=== PATIENT | male | born 1975 | race Caucasian/White ===

== ENCOUNTER 2016-12-07 11:26 | Emergency (ER) | payer MEDICARE, MEDICAID ==
[2016-12-07 12:45] LABS: Hematocrit 44 % (42-52); Hemoglobin 14.6 g/dl (14.0-18.0); Mean Corpuscular HGB Conc 34 g/dl (31-36); Mean Corpuscular Hemoglobin 30 pg (27-31); Mean Corpuscular Volume 88 fL (80-94); Mean Platelet Volume 7 um3 (7.4-10.4); Red Blood Count 4.95 10^6/ul (4.0-5.4); Red Cell Distribution Width 14 % (10.5-15); White Blood Count 9.5 10^3/ul (3.5-10.8)
[2016-12-07 13:07] LABS: Albumin 4.1 g/dL (3.2-5.2); BUN/Creatinine Ratio 9.5 (8-20); Calcium 9.4 mg/dL (8.6-10.3); EGFR African American 101.1 (>60); EGFR Non-African American 78.6 (>60); Globulin 3.3 g/dL (2-4); Potassium 4.1 mmol/L (3.5-5.0); Total Bilirubin 0.3 mg/dL (0.2-1.0); Total Protein 7.4 g/dL (6.4-8.9)
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
[2016-12-07 13:56] VITALS: BP 117/80
== END 2016-12-07 13:52 | disposition home or self-care (01) ==
LOC: ED 11:26
DX: Z04.9 Encounter for examination and observation for unspecified reason (principal); F17.210 Nicotine dependence, cigarettes, uncomplicated; Z89.432 Acquired absence of left foot
CPT/HCPCS: 36415; 80053; 85025; 93005; 99282

== ENCOUNTER 2017-09-29 11:03 | Emergency (ER) | payer MEDICARE, MEDICAID ==
[2017-09-29 13:23] VITALS: BP 114/67
--- NOTE | 2017-09-29 14:57 | UC ---
UC Dental HPI - History of Current Complaint Chief Complaint: UCDentalProblem Stated Complaint: DENTAL PAIN Time Seen by Provider: 09/29/17 14:35 Hx Obtained From: Patient Onset/Duration: Gradual Onset, Lasting Days Severity: Moderate Aggravating Factor(s): Chewing Alleviating Factor(s): Nothing - Allergies/Home Medications Allergies/Adverse Reactions: Allergies Allergy/AdvReac Type Severity Reaction Status Date / Time Latex Allergy Rash Verified 09/29/17 11:19 Prochlorperazine AdvReac Intermediate Agitation Verified 09/29/17 11:19 [From Compazine] Home Medications: Home Medications Ibuprofen [Ibuprofen 200] 800 mg PO Q8HR PRN 09/29/17 [History Confirmed ] PMH/Surg Hx/FS Hx/Imm Hx Previously Healthy: Yes - Surgical History Surgical History: Yes Surgery Procedure, Year, and Place: [facility], twice each , all at [facility] [place] - Family History Known Family History: Positive: Cardiac Disease - [place] - Social History Occupation: Employed Full-time Lives: Alone Alcohol Use: Rare Substance Use Type: None Smoking Status (MU): Heavy Every Day Tobacco Smoker Amount Used/How Often: 1PPD - Immunization History Most Recent Influenza Vaccination: unknown Review of Systems Constitutional: Negative Skin: Negative Eyes: Negative ENT: Dental Pain Respiratory: Negative Cardiovascular: Negative Gastrointestinal: Negative Genitourinary: Negative Motor: Negative Neurovascular: Negative Musculoskeletal: Negative Neurological: Negative Psychological: Negative Is Patient Immunocompromised?: No All Other Systems Reviewed And Are Negative: Yes Physical Exam Triage Information Reviewed: Yes Appearance: Well-Appearing, Pain Distress Vital Signs: Initial Vital Signs Temp 97.8 F 09/29/17 11:14 Pulse 97 09/29/17 11:14 Resp 14 09/29/17 11:14 BP 138/91 09/29/17 11:14 Pulse Ox 98 09/29/17 11:14 Vital Signs Reviewed: Yes Eye Exam: Normal ENT Exam: Normal ENT: Positive: Dental tenderness - dental tenderness of right uppper second molar, with an area of induration visualized. dental caries noted with tooth eroided to the gumline. Dental Exam: Normal Neck exam: Normal Neck: Positive: 1 Respiratory Exam: Normal Cardiovascular Exam: Normal Skin Exam: Normal Dental Complaint Course/Dx - Course Course Of Treatment: Patient presents with dental pain. On exam there is evidence of dental caries, and the beginning of dental abscess. He has appointment scheduled with Wally Avilez. He was given RX for penvk, and tyelnol and codeine. And discharged home in stable condition. - Differential Dx/Diagnosis Differential Diagnosis/Dx: Dental Abscess, Dental Caries Provider Diagnoses: dental abscess. dental pain Discharge - Discharge Plan Condition: Stable Disposition: HOME Prescriptions: Acetaminop/Codeine 30 MG TAB* [Tylenol/Codeine 30 MG TAB*] 1 tab PO Q6H PRN #14 tab MDD 4 PRN Reason: dental pain Penicillin VK TAB* [Penicillin VK 250 mg Tab*] 500 mg PO QID #40 tab Patient Education Materials: Dental Abscess (ED), Toothache (ED) Referrals: Johnson Henson DO [Primary Care Provider] -
== END 2017-09-29 14:52 | disposition home or self-care (01) ==
LOC: UCEAST 11:03
DX: K04.7 Periapical abscess without sinus (principal); K08.89 Other specified disorders of teeth and supporting structures; F17.290 Nicotine dependence, other tobacco product, uncomplicated; Z88.8 Allergy status to other drugs, medicaments and biological substances; Z91.040 Latex allergy status
CPT/HCPCS: 99212; G0463

== ENCOUNTER 2018-03-01 21:44 | Observation (INO) | payer MEDICAID, MEDICARE, OTHER ==
[2018-03-01] MEDS ORDERED: Diazepam INJ (NF) 5 MG/ML 10 ML VIAL (50 MG TOTAL) IV ONE (22:45)
[2018-03-01] MEDS ORDERED: Metoclopramide IV* 5 MG/ML 2 ML VIAL IV ONE (23:09)
[2018-03-01] MEDS ORDERED: NS 0.9% 1000 ML* 1,000 ML IV ONE (23:17)
[2018-03-01] MEDS ORDERED: Pantoprazole IV* 40 MG IV ONE (23:18)
[2018-03-01] MEDS ORDERED: Diazepam SYRINGE* 5 MG/ML 2 ML SYRINGE (10 MG total) IV ONE (23:18)
[2018-03-01 23:25] LABS: Hematocrit 45 % (42-52); Hemoglobin 15.4 g/dl (14.0-18.0); Mean Corpuscular HGB Conc 34 g/dl (31-36); Mean Corpuscular Hemoglobin 29 pg (27-31); Mean Corpuscular Volume 85 fL (80-94); Mean Platelet Volume 7.7 um3 (7.4-10.4); Platelet Count 303 10^3/ul (150-450); Red Blood Count 5.28 10^6/ul (4.0-5.4); Red Cell Distribution Width 13 % (10.5-15); White Blood Count 19.9 10^3/ul (3.5-10.8)
[2018-03-01 23:40] LABS: INR 1.1 (0.77-1.02)
[2018-03-01 23:44] LABS: EGFR Non-African American 53.5 (>60)
[2018-03-01 23:50] LABS: ABS Basophils 0 10^3/ul (0-0.2); ABS Eosinophils 0 10^3/ul (0-0.6); ABS Lymphocytes 1.1 10^3/ul (1.0-4.8); ABS Monocytes 1.8 10^3/ul (0-0.8); ABS Neutrophils 16.7 10^3/ul (1.5-7.7)
[2018-03-02] MEDS ORDERED: NS 0.9% 1000 ML* 1,000 ML IV ONE (00:50)
[2018-03-02 01:23] LABS: ABS Nucleated RBC 0 10^3/ul; Eosinophil % 0 % (0-6); Lymphocyte % 5.8 % (25-47); Nucleated Red Blood Cells % 0.1
[2018-03-02] MEDS ORDERED: Iodixanol* (CONTRAST) 320 MG/ML 100 ML SDV IV ONE (01:40)
[2018-03-02] MEDS ORDERED: Potassium Chlor TAB* 20 MEQ TAB.ER PO ONE (02:17)
[2018-03-02] MEDS ORDERED: KCL 10 MEQ/50 ML IVPREMIX* 10 MEQ/50 ML BAG IV ONE (02:17)
[2018-03-02 03:03] LABS: Urine Appearance Clear; Urine Blood Negative (Negative); Urine Color Yellow; Urine Ketones 1+ (Negative); Urine Protein 2+(100 mg/dL) (Negative); Urine Urobilinogen Negative (Negative)
[2018-03-02] MEDS ORDERED: PROCHLORPERAZINE INJ 5 MG/ML 2 ML VIAL IV ONE (03:08)
[2018-03-02] MEDS ORDERED: Diazepam SYRINGE* 5 MG/ML 2 ML SYRINGE (10 MG total) IV ONE (03:09)
[2018-03-02] MEDS ORDERED: Buprenorphine/Naloxone 8-2 MG SL TAB* 1 TAB PO PRN (03:33)
[2018-03-02] MEDS ORDERED: Thiamine IV* 100 MG/ML 2 ML VIAL IM ONE (03:36)
[2018-03-02] MEDS ORDERED: Acetaminophen TAB* 325 MG PO PRN (03:36)
[2018-03-02] MEDS ORDERED: Buprenorphine/Naloxone 8-2 MG SL TAB* 1 TAB PO ONE ×3 (03:36→11:20)
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
--- NOTE | 2018-03-02 03:43 | ED ---
Adriana Quezada Rebecca, scribed for Tom Mckenzie MD on 03/01/18 at 2319 . Complex/Multi-Sys Presentation - HPI Summary HPI Summary: Pt is a 42 y/o M BIB [employer] who presents to ED c/o abdominal pain with N/V since this morning. Abdominal discomfort is currently severe, ranked 10/10. Pt reports hematemesis. Believes his symptoms are due to EtOH and heroin withdrawal. He uses both daily, last used 4 mg heroin (sniffed) and EtOH yesterday. - History Of Current Complaint Chief Complaint: EDGeneral Time Seen by Provider: 03/01/18 23:05 Hx Obtained From: Patient Onset/Duration: Still Present Severity Currently: Severe - 07/17 Location: Pain At: - Abdomen Aggravating Factor(s): EtOH and heroin withdrawal Alleviating Factor(s): nothing Associated Signs And Symptoms: Positive: Nausea, Vomiting, Abdominal Pain - Allergies/Home Medications Allergies/Adverse Reactions: Allergies Allergy/AdvReac Type Severity Reaction Status Date / Time latex Allergy Rash Verified 03/01/18 23:35 prochlorperazine AdvReac Intermediate Agitation Verified 03/01/18 23:35 PMH/Surg Hx/FS Hx/Imm Hx Cardiovascular History: Reports: Hx Hypertension Denies: Hx Pacemaker/ICD Musculoskeletal History: Reports: Hx Back Problems, Other Musculoskeletal History - Chronic Bilateral Hip Pain; Amputated left lower leg Sensory History: Reports: Hx Contacts or Glasses - did not wear them for test Denies: Hx Hearing Aid Opthamlomology History: Reports: Hx Contacts or Glasses - did not wear them for test Neurological History: Reports: Hx Migraine Psychiatric History: Denies: Hx Eating Disorder, Hx Panic Disorder, Hx of Violent Episodes Against Others - Surgical History Surgery Procedure, Year, and Place: [facility]07[facility] B[facility] inguinal hernia repairs, twice each , all at [facility] [place] - Immunization History Date of Tetanus Vaccine: unk Date of Influenza Vaccine: unk Infectious Disease History: No Infectious Disease History: Denies: Traveled Outside the US in Last 30 Days - Family History Known Family History: Positive: Cardiac Disease - [place] - Social History Alcohol Use: Daily Hx Substance Use: Yes Substance Use Type: Reports: Heroin Substance Use Comment - Amount & Last Used: 2-4 grams Hx Tobacco Use: Yes Smoking Status (MU): Heavy Every Day Tobacco Smoker Amount Used/How Often: 1PPD Review of Systems Negative: Fever Positive: Abdominal Pain, Vomiting, Nausea, Other - Hematemesis All Other Systems Reviewed And Are Negative: Yes Physical Exam - Summary Physical Exam Summary: VITAL SIGNS: Reviewed. GENERAL: ~Patient is a well-developed and nourished male who is lying comfortable in the stretcher. Patient is not in any acute respiratory distress. HEAD AND FACE: No signs of trauma. No ecchymosis, hematomas or skull depressions. No sinus tenderness. EYES: PERRLA, EOMI x 2, No injected conjunctiva, no nystagmus. EARS: Hearing grossly intact. Ear canals and tympanic membranes are within normal limits. MOUTH: Oropharynx within normal limits. NECK: Supple, trachea is midline, no adenopathy, no JVD, no carotid bruit, no c- spine tenderness, neck with full ROM. CHEST: Symmetric, no tenderness at palpation LUNGS: Clear to auscultation bilaterally. No wheezing or crackles. CVS: Regular rate and rhythm, S1 and S2 present, no murmurs or gallops appreciated. ABDOMEN: Patient is actively vomiting. Soft, non-tender. No signs of distention. No rebound no guarding, and no masses palpated. Bowel sounds are normal. EXTREMITIES: FROM in all major joints, no edema, no cyanosis or clubbing. NEURO: Alert and oriented x 3. No acute neurological deficits. Speech is normal and follows commands. SKIN: Diaphoretic Triage Information Reviewed: Yes Vital Signs On Initial Exam: Initial Vitals Temp Pulse Resp BP Pulse Ox 97.1 F 56 16 174/61 97 03/01/18 21:45 03/01/18 21:45 03/01/18 21:45 03/01/18 21:45 03/01/18 21:45 Vital Signs Reviewed: Yes Diagnostics - Vital Signs Vital Signs Temp Pulse Resp BP Pulse Ox 03/01/18 21:45 97.1 F 56 16 174/61 97 - Laboratory Result Diagrams: 03/01/18 23:14 03/01/18 23:14 Lab Statement: Any lab studies that have been ordered have been reviewed, and results considered in the medical decision making process. - CT CT Abd/Pel CT Interpretation: No Acute Changes - No acute findings. ED physician reviewed this report. Pending official report. CT Interpretation Completed By: Radiologist - EKG 2316 Cardiac Rate: Bradycardia - 54 bpm EKG Rhythm: Sinus Bradycardia EKG Interpretation: Normal axis. Normal interval. No ischemic changes. Re-Evaluation - Re-Evaluation First Eval Re-Evaluation Time: 03:12 Comment: Symptoms continue. Discuss results. Complex Multi-Symp Course/Dx Assessment/Plan: Pt is a 42 y/o M BIB [employer] who presents to ED c/o severe abdominal pain with N/V since this morning. Pt reports hematemesis. Believes his symptoms are due to EtOH and heroin withdrawal. He uses both daily, last used 4 mg heroin (sniffed) and EtOH yesterday. Blood work, UA, and toxicology were done, including a WBC of 19.9, INR of 1.1, lactic acid of 2.5, CRP of 8.27. CT Abd/Pel reveal no acute results. EKG has no ischemic changes. IN the ED course, pt received valium, reglan, fluids, protonix, compazine, and potassium chloride. Discussed care of pt with Dr. Montana who accepts pt for admission. Pt will be admitted with Dx of acute opirate withdrawal. Allergies noted. - Diagnoses Provider Diagnoses: Opiate withdrawal - Physician Notifications Discussed Care Of Patient With: Alex Montana Time Discussed With Above Provider: 03:10 Instructed by Provider To: Other - Accepts pt for admission. Discharge - Sign-Out/Discharge Documenting (check all that apply): Discharge/Admit/Transfer - Admit - Discharge Plan Condition: Fair Disposition: ADMITTED TO [facility] Referrals: No Primary Care Phys,NOPCP [Primary Care Provider] - The documentation as recorded by the Adriana najera Rebecca accurately reflects the service I personally performed and the decisions made by me, Tom Mckenzie MD.
[2018-03-02] MEDS ORDERED: Buprenorphine/Naloxone 8-2 MG SL TAB* 1 TAB PO SCH ×4 (04:00→21:00)
[2018-03-02] MEDS: LORazepam INJ* 2 MG/ML 1 ML VIAL IV PUSH SCH ×4 (05:37→20:43)
[2018-03-02] MEDS ORDERED: Ondansetron INJ* 2 MG/ML VIAL IV PRN (07:50)
--- NOTE | 2018-03-02 08:04 | PN ---
Subjective Date of Service: 03/02/18 Interval History: Mr. Deras reports significant symptoms of opioid withdrawal, specifically nausea , vomiting and aching all over. He notes that when he has obtained suboxone in the past he would typically use 8 to 12 mg strips. Objective Active Medications: Acetaminophen (Tylenol Tab*) 650 mg PO Q4H PRN Buprenorphine/Naloxone (Suboxone 8-2 Mg Sl Tab*) 0.5 tab.sl PO 0900,2100 JEREMIAH Buprenorphine/Naloxone (Suboxone 8-2 Mg Sl Tab*) 0.5 tab.sl PO 1500 PRN Clonidine HCl (Catapres Tab*) 0.1 mg PO Q1H PRN Folic Acid (Folvite Tab*) 1 mg PO DAILY JEREMIAH Lorazepam (Ativan Inj*) 0 - 6 mg IV PUSH .PER [facility] PROTOCOL [facility] Multivitamins/Minerals (Theragran/Minerals Tab*) 1 tab PO DAILY JEREMIAH Ondansetron HCl (Zofran Inj*) 4 mg IV Q4H PRN Thiamine HCl (Vitamin B-1 Tab*) 100 mg PO DAILY [facility] Vital Signs: Temp Pulse Resp BP Pulse Ox 99.8 F 70 16 119/44 97 03/02/18 06:09 03/02/18 06:09 03/02/18 07:47 03/02/18 06:09 03/02/18 06:09 Oxygen Devices in Use Now: None Appearance: Male lying in bed, withdrawn, appears uncomfortable Eyes: No Scleral Icterus Ears/Nose/Mouth/Throat: Mucous Membranes Moist Neck: Trachea Midline Respiratory: Symmetrical Chest Expansion and Respiratory Effort, Clear to Auscultation Cardiovascular: NL Sounds; No Murmurs; No JVD, No Edema Abdominal: NL Sounds; No Tenderness; No Distention Lymphatic: No Cervical Adenopathy Extremities: No Edema Skin: No Rash or Ulcers Neurological: Alert and Oriented x 3, NL Muscle Strength and Tone Nutrition: Taking PO's Result Diagrams: 03/02/18 05:56 03/02/18 05:56 Assess/Plan/Problems-Billing Assessment: Mr. Deras is a 42 yo male with a PMH of opioid and alcohol abuse who was admitted on 03/02/18 with opioid and alcohol withdrawal. - Patient Problems (1) Opioid withdrawal Comment: - Patient with GI complaints, nausea etc but is actually bradycardic without hypertension. - Increase suboxone and continue clonidine. Continue zofran. (2) Alcohol withdrawal Comment: - No clear evidence of alcohol withdrawal. - Continue WAM protocol - Continue folate and thiamine. (3) DVT prophylaxis Comment: - Early mobility (4) Full code status Comment: Status and Disposition: OBV. Anticipate discharge to detention when medically stable.
--- NOTE | 2018-03-02 08:27 | RAD ---
CLINICAL HISTORY: Abdominal pain COMPARISON: December 12, 2011 TECHNIQUE: Multiple contiguous axial CT scans were obtained of the abdomen and pelvis after the administration of intravenous contrast. Coronal and sagittal multiplanar reformations are submitted for review. Oral contrast was not administered. Delayed images were obtained through the abdomen. FINDINGS: The study is limited by patient motion artifact. LUNG BASES: There is minimal linear atelectasis of the left lung base. LIVER: The liver is diffusely low in attenuation compared to the spleen. There are no focal hepatic parenchymal masses. BILE DUCTS: There is no intrahepatic or extrahepatic biliary dilatation. GALLBLADDER: The gallbladder is normal, without pericholecystic inflammatory change. PANCREAS: The pancreas is normal, without mass or ductal dilatation. SPLEEN: Normal in size and appearance. UPPER GI TRACT: Evaluation of the gastrointestinal tract is limited by incomplete gastric distention. The upper GI tract is unremarkable. SMALL BOWEL AND MESENTERY: The small bowel is normal in contour, course, and caliber. There is no obstruction or dilatation. COLON: The colon is normal in contour, course, caliber. There is no pericolonic inflammatory change. There is a tubular, vermiform, hollow viscus that is blind ending, and originates from the cecum, consistent with a normal appendix. There is no periappendiceal inflammatory change. This is best seen on coronal images 48 through 59. ADRENALS: Normal bilaterally. KIDNEYS: The kidneys are normal in shape, size, contour, and axis. There is no hydronephrosis or nephrolithiasis. BLADDER: The bladder is smooth in contour. PELVIC ORGANS: The prostate gland is normal. The seminal vesicles are symmetric. AORTA: There is minimal calcific atherosclerotic disease of the aorta. IVC: Unremarkable LYMPH NODES: There is no lymphadenopathy by size criteria. ABDOMINAL WALL: There is no evidence for abdominal wall hernia. BONES AND SOFT TISSUES: Unremarkable OTHER: None IMPRESSION: FATTY INFILTRATION OF THE LIVER.
[2018-03-02 08:51] LABS: Hematocrit 41 % (42-52); Hemoglobin 13.6 g/dl (14.0-18.0); Mean Corpuscular HGB Conc 34 g/dl (31-36); Mean Corpuscular Hemoglobin 29 pg (27-31); Mean Corpuscular Volume 87 fL (80-94); Mean Platelet Volume 8.3 um3 (7.4-10.4); Platelet Count 223 10^3/ul (150-450); Red Blood Count 4.68 10^6/ul (4.0-5.4); Red Cell Distribution Width 13 % (10.5-15); White Blood Count 19.4 10^3/ul (3.5-10.8)
[2018-03-02 08:56] LABS: ABS Basophils 0 10^3/ul (0-0.2); ABS Eosinophils 0 10^3/ul (0-0.6); ABS Lymphocytes 1.2 10^3/ul (1.0-4.8); ABS Monocytes 1.6 10^3/ul (0-0.8); ABS Neutrophils 16.5 10^3/ul (1.5-7.7); ABS Nucleated RBC 0 10^3/ul; Eosinophil % 0 % (0-6); Lymphocyte % 6.2 % (25-47); Nucleated Red Blood Cells % 0
[2018-03-02 09:05] LABS: EGFR Non-African American 68.4 (>60)
[2018-03-02] MEDS: Folic Acid TAB* 1 MG PO SCH (09:39)
[2018-03-02] MEDS: Multivitamins/Minerals TAB PO SCH (09:39)
[2018-03-02] MEDS: Thiamine TAB* 100 MG TAB PO SCH (09:39)
[2018-03-02] MEDS: cloNIDine TAB* 0.1 MG PO PRN (11:15)
[2018-03-02] MEDS: PROCHLORPERAZINE INJ 5 MG/ML 2 ML VIAL IV PRN ×2 (11:16→17:24)
[2018-03-02] MEDS: Ondansetron 40 MG VIAL* 2 MG/ML 20 ML VIAL IV PRN (14:07)
[2018-03-02] MEDS: KCL 20 MEQ/100 ML IVPREMIX* 20 MEQ/100 ML BAG IV SCH ×2 (17:39→19:53)
[2018-03-02] MEDS: Buprenorphine/Naloxone 8-2 MG SL TAB* 1 TAB PO SCH (20:42)
[2018-03-02] MEDS ORDERED: Benzocaine/Menthol LOZ* 1 LOZENGE MT PRN (20:48)
[2018-03-03] MEDS: LORazepam INJ* 2 MG/ML 1 ML VIAL IV PUSH SCH ×2 (00:31→04:36)
[2018-03-03] MEDS: KCL 20 MEQ/100 ML IVPREMIX* 20 MEQ/100 ML BAG IV SCH (00:32)
[2018-03-03] MEDS ORDERED: diPHENhydraMINE IV* 50 MG/ML 1 ml VIAL (BENADRYL) IV PRN (01:20)
[2018-03-03] MEDS: cloNIDine TAB* 0.1 MG PO PRN (03:00)
[2018-03-03 06:00] LABS: EGFR Non-African American 77.4 (>60)
[2018-03-03] MEDS ORDERED: Calcium Carbonate CHEW TAB* 500 MG (TUMS) PO PRN (07:55)
--- NOTE | 2018-03-03 07:58 | PN ---
Subjective Date of Service: 03/03/18 Interval History: Mr. Deras reports that he feels "alot better" and asks "when can I get out of here." He denies chest pain, SOB, nausea, or abdominal pain but does complain of heartburn. Objective Active Medications: Acetaminophen (Tylenol Tab*) 650 mg PO Q4H PRN Buprenorphine/Naloxone (Suboxone 8-2 Mg Sl Tab*) 1.5 tab.sl PO BID JEREMIAH Calcium Carbonate (Tums*) 500 mg PO Q4H PRN Clonidine HCl (Catapres Tab*) 0.1 mg PO Q1H PRN Diphenhydramine HCl (Benadryl Iv*) 50 mg IV Q6H PRN Folic Acid (Folvite Tab*) 1 mg PO DAILY JEREMIAH Lorazepam (Ativan Inj*) 0 - 6 mg IV PUSH .PER [facility] PROTOCOL [facility] Multivitamins/Minerals (Theragran/Minerals Tab*) 1 tab PO DAILY JEREMIAH Ondansetron HCl (Zofran 40 Mg Vial*) 4 mg IV Q4H PRN Prochlorperazine Edisylate (Compazine Inj*) 10 mg IV Q6H PRN Thiamine HCl (Vitamin B-1 Tab*) 100 mg PO DAILY [facility] Throat Lozenges (Chloraseptic Jonathan*) 1 jonathan MT Q6H PRN Vital Signs: Temp Pulse Resp BP Pulse Ox 99.2 F 62 18 149/77 96 03/03/18 06:06 03/03/18 06:06 03/03/18 06:48 03/03/18 06:06 03/03/18 06:06 Oxygen Devices in Use Now: None Appearance: Male sitting up on edge of bed in NAD Eyes: No Scleral Icterus Ears/Nose/Mouth/Throat: Mucous Membranes Moist Neck: Trachea Midline Respiratory: Symmetrical Chest Expansion and Respiratory Effort, Clear to Auscultation Cardiovascular: NL Sounds; No Murmurs; No JVD, No Edema Abdominal: NL Sounds; No Tenderness; No Distention Lymphatic: No Cervical Adenopathy Extremities: No Edema Skin: No Rash or Ulcers Neurological: Alert and Oriented x 3, NL Muscle Strength and Tone Nutrition: Taking PO's Result Diagrams: 03/02/18 05:56 03/03/18 05:20 Assess/Plan/Problems-Billing Assessment: Mr. Deras is a 42 yo male with a PMH of opioid and alcohol abuse who was admitted on 03/02/18 with opioid and alcohol withdrawal. - Patient Problems (1) Opioid withdrawal Comment: - Resolved - Continue suboxone. (2) Alcohol withdrawal Comment: - Resolved. (3) Heartburn Comment: - Omeprazole qAM with tums prn. (4) DVT prophylaxis Comment: - Early mobility (5) Full code status Comment: Status and Disposition: Discharge.
[2018-03-03] MEDS: Thiamine TAB* 100 MG TAB PO SCH (08:24)
[2018-03-03] MEDS: Ondansetron 40 MG VIAL* 2 MG/ML 20 ML VIAL IV PRN (08:24)
[2018-03-03] MEDS: Buprenorphine/Naloxone 8-2 MG SL TAB* 1 TAB PO SCH (08:24)
[2018-03-03] MEDS: Folic Acid TAB* 1 MG PO SCH (08:24)
[2018-03-03] MEDS: Multivitamins/Minerals TAB PO SCH (08:28)
[2018-03-03 10:36] VITALS: BP 142/74
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
[2018-03-04] MEDS ORDERED: Omeprazole CAP* 20 MG PO SCH (06:00)
== END 2018-03-03 11:20 | disposition home or self-care (01) ==
LOC: ED 21:44 → MED 03-02 03:12 → OBSVTOIN 03-02 14:15 → INTOOBSV 03-02 14:15 → UNDODISIN 03-03 11:20
PROVIDERS: ADMIT Hospitalist; ATTEND Internal Medicine
DX: F11.23 Opioid dependence with withdrawal (principal); Z72.89 Other problems related to lifestyle; R11.2 Nausea with vomiting, unspecified; R10.9 Unspecified abdominal pain; M79.662 Pain in left lower leg; R61 Generalized hyperhidrosis; Z89.512 Acquired absence of left leg below knee; F17.210 Nicotine dependence, cigarettes, uncomplicated
CPT/HCPCS: 36415; 74177; 80048; 80053; 80307; 80320; 80329; 81003; 81015; 82140; 83605; 83690; 83735; 84145; 84443; 85025; 85610; 85730; 86140; 87040; 87086; 93005; 96374; 96375; 99285; A9270-GY; G0378; G0480; J0780; J1200; J2060; J2405; J2765; J3360; J3411; J3480; Q9967

== ENCOUNTER 2018-07-08 13:45 | Inpatient (IN) | payer OTHER, MEDICAID ==
[2018-07-08] MEDS ORDERED: NS 0.9% 1000 ML* 1,000 ML IV ONE (18:26)
[2018-07-08] MEDS ORDERED: Ondansetron INJ* 2 MG/ML VIAL IV ONE (18:26)
[2018-07-08] MEDS ORDERED: Morphine VIAL* 10 MG/ML 1 ML VIAL IV ONE ×2 (18:26→18:29)
[2018-07-08] MEDS ORDERED: Morphine INJ* 4 MG/ML 1 ML SYRINGE (NEW SYRINGE VERSION) ONE (18:40)
[2018-07-08] MEDS ORDERED: Pantoprazole IV* 40 MG IV ONE (18:43)
[2018-07-08] MEDS ORDERED: Sucralfate TAB* 1 GM PO ONE (18:43)
[2018-07-08 18:48] LABS: ABS Basophils 0.1 10^3/ul (0-0.2); ABS Eosinophils 0 10^3/ul (0-0.6); ABS Lymphocytes 1.2 10^3/ul (1.0-4.8); ABS Monocytes 1.4 10^3/ul (0-0.8); ABS Neutrophils 15.7 10^3/ul (1.5-7.7); ABS Nucleated RBC 0 10^3/ul; Eosinophil % 0 % (0-6); Hematocrit 43 % (42-52); Hemoglobin 14.4 g/dl (14.0-18.0); Lymphocyte % 6.5 % (25-47); Mean Corpuscular HGB Conc 34 g/dl (31-36); Mean Corpuscular Hemoglobin 29 pg (27-31); Mean Corpuscular Volume 86 fL (80-94); Nucleated Red Blood Cells % 0.2; Platelet Count 269 10^3/ul (150-450); Red Blood Count 4.93 10^6/ul (4.00-5.40); Red Cell Distribution Width 13 % (10.5-15); White Blood Count 18.4 10^3/ul (3.5-10.8)
--- NOTE | 2018-07-08 19:00 | ED ---
Abdominal Pain/Male - HPI Summary HPI Summary: The pt is a 43 y/o male [facility] [place] [facility] [place]/o of diffuse abdominal pain since 2 days ago worsened today. The pain is rated 10/10 in severity. He notes N/V/D with hot and cold sweats. The pt denies any SHx of appendectomy or cholecystectomy. - History of Current Complaint Chief Complaint: EDAbdPain Stated Complaint: LT UPPER ABD PAIN Time Seen by Provider: 07/08/18 18:23 Hx Obtained From: Patient Timing: Lasting Days Severity Currently: Severe Pain Intensity: 10 Pain Scale Used: 0-10 Numeric Location: Diffuse Associated Signs And Symptoms: Positive: Nausea, Vomiting, Diarrhea, Other - Hot and cold sweats - Allergies/Home Medications Allergies/Adverse Reactions: Allergies Allergy/AdvReac Type Severity Reaction Status Date / Time latex Allergy Rash Verified 07/08/18 17:55 prochlorperazine AdvReac Intermediate Agitation Verified 07/08/18 17:55 Home Medications: Home Medications cloNIDine HCl [Clonidine HCl ER 0.1 MG] 0.1 mg PO BEDTIME 07/08/18 [History Confirmed 07/08/18] dilTIAZem HCl [Diltiazem ER] 120 mg PO DAILY 07/08/18 [History Confirmed ] PMH/Surg Hx/FS Hx/Imm Hx Previously Healthy: No Cardiovascular History: Reports: Hx Hypertension Denies: Hx Pacemaker/ICD Musculoskeletal History: Reports: Hx Back Problems, Other Musculoskeletal History - Chronic Bilateral Hip Pain; Amputated left lower leg Sensory History: Reports: Hx Contacts or Glasses - did not wear them for test Denies: Hx Hearing Aid Opthamlomology History: Reports: Hx Contacts or Glasses - did not wear them for test Neurological History: Reports: Hx Migraine Psychiatric History: Denies: Hx Eating Disorder, Hx Panic Disorder, Hx of Violent Episodes Against Others - Surgical History Surgery Procedure, Year, and Place: [facility] Bilateral inguinal hernia repairs, twice each , [place] [facility] - Immunization History Date of Tetanus Vaccine: unk Date of Influenza Vaccine: unk Immunizations Up to Date: Yes Infectious Disease History: No Infectious Disease History: Denies: Traveled Outside the US in Last 30 Days - Family History Known Family History: Positive: Cardiac Disease - [place] - Social History Alcohol Use: None Hx Substance Use: Yes Substance Use Type: Reports: Heroin Substance Use Comment - Amount & Last Used: "long time ago" Hx Tobacco Use: Yes Smoking Status (MU): Heavy Every Day Tobacco Smoker Type: Cigarettes Amount Used/How Often: 1PPD Review of Systems Positive: Skin Diaphoresis - Hot and cold sweats Positive: Abdominal Pain, Vomiting, Diarrhea, Nausea All Other Systems Reviewed And Are Negative: Yes Physical Exam - Summary Physical Exam Summary: Appearance: The patient is well-nourished in no acute distress and in no acute pain. Skin: The skin is warm and dry and skin color reflects adequate perfusion. HEENT: The head is normocephalic and atraumatic. The pupils are equal and reactive. The conjunctivae are clear and without drainage. Nares are patent and without drainage. Mouth reveals moist mucous membranes and the throat is without erythema and exudate. The external ears are intact. The ear canals are patent and without drainage. The tympanic membranes are intact. Neck: The neck is supple with full range of motion and non-tender. There are no carotid bruits. There is no neck vein distension. Respiratory: Chest is non-tender. Lungs are clear to auscultation and breath sounds are symmetrical and equal. Cardiovascular: Heart is regular rate and rhythm. There is no murmur or rub auscultated. There is no peripheral edema and pulses are symmetrical and equal. Abdomen: The abdomen is soft. Tenderness in the LUQ and the epigastric. There are normal bowel sounds heard in all four quadrants and there is no organomegaly palpated. Musculoskeletal: There is no back tenderness noted. Extremities are non-tender with full range of motion. There is good capillary refill. There is no peripheral edema or calf tenderness elicited. Neurological: Patient is alert and oriented to person, place and time. The patient has symmetrical motor strength in all four extremities. Cranial nerves are grossly intact. Deep tendon reflexes are symmetrical and equal in all four extremities. Triage Information Reviewed: Yes Vital Signs On Initial Exam: Initial Vitals Temp Pulse Resp BP Pulse Ox 99.2 F 100 20 158/88 98 07/08/18 13:48 07/08/18 13:48 07/08/18 13:48 07/08/18 13:48 07/08/18 13:48 Vital Signs Reviewed: Yes Diagnostics - Vital Signs Vital Signs Temp Pulse Resp BP Pulse Ox 07/08/18 18:50 22 07/08/18 17:48 99 25 153/99 99 07/08/18 17:40 100.6 F 103 22 156/91 99 07/08/18 15:32 98.3 F 101 18 152/84 99 07/08/18 13:48 99.2 F 100 20 158/88 98 - Laboratory Lab Results: Lab Results 07/08/18 Range/Units 18:36 WBC 18.4 H (3.5-10.8) 10^3/ul RBC 4.93 (4.00-5.40) 10^6/ul Hgb 14.4 (14.0-18.0) g/dl Hct 43 (42-52) % MCV 86 (80-94) fL MCH 29 (27-31) pg MCHC 34 (31-36) g/dl RDW 13 (10.5-15) % Plt Count 269 (150-450) 10^3/ul MPV 7.0 L (7.4-10.4) um3 Neut % (Auto) 85.5 H (38-83) % Lymph % (Auto) 6.5 L (25-47) % [place] % (Auto) 7.6 H (0-7) % Eos % (Auto) 0 (0-6) % Baso % (Auto) 0.4 (0-2) % Absolute Neuts (auto) 15.7 H (1.5-7.7) 10^3/ul Absolute Lymphs (auto) 1.2 (1.0-4.8) 10^3/ul Absolute Monos (auto) 1.4 H (0-0.8) 10^3/ul Absolute Eos (auto) 0 (0-0.6) 10^3/ul Absolute Basos (auto) 0.1 (0-0.2) 10^3/ul Absolute Nucleated RBC 0 10^3/ul Nucleated RBC % 0.2 Result Diagrams: 07/08/18 18:36 07/08/18 18:36 Lab Statement: Any lab studies that have been ordered have been reviewed, and results considered in the medical decision making process. - CT Abd/Pel CT CT Interpretation Completed By: Radiologist - IMPRESSION: 1. Findings of acute cholecystitis with associated abscess suggesting perforation. Recommend further characterization with ultrasound. 2. Subtle changes of possible tip appendicitis. 3. Right inguinal hernia. No strangulation. The ED physician reviewed this radiology report. Abdominal Pain Fem Course/Dx - Course Course Of Treatment: Mr. Deras was found to have acute cholecystitis with the possible rupture on CT scan. He had a leukocytosis of 18,000. Dr. Mtz was contacted and agreed to see the patient. He was given Zosyn here in the emergency department as well as pain medication. - Diagnoses Provider Diagnoses: Cholecystitis - Provider Notifications Discussed Care Of Patient With: Juan Manuel Gonzalez Time Discussed With Above Provider: 20:49 Instructed by Provider To: MD Will See In ED Discharge - Sign-Out/Discharge Documenting (check all that apply): Patient Departure - Discharge Plan Condition: Stable Disposition: ADMITTED TO [facility] - Billing Disposition and Condition Condition: STABLE Disposition: Admitted to [facility] - Attestation Statements Document Initiated by Scribe: Yes Documenting Scribe: Yasmine Soria Provider For Whom Scribe is Documenting (Include Credential): Dr. Kade Aguilar MD Scribe Attestation: Yasmine Quezada , scribed for Dr. Kade Aguilar MD on 07/08/18 at 2206. Scribe Documentation Reviewed: Yes Provider Attestation: The documentation as recorded by the Yasmine najera accurately reflects the service I personally performed and the decisions made by me, Dr. Kade Aguilar MD
--- NOTE | 2018-07-08 20:33 | RAD ---
EXAM: CT Abdomen and Pelvis Without Intravenous Contrast CLINICAL HISTORY: 43 years old, male; Pain; Abdominal pain; Additional info: Epigastric pain TECHNIQUE: Axial computed tomography images of the abdomen and pelvis without intravenous contrast. All CT scans at this facility use at least one of these dose optimization techniques: automated exposure control; mA and/or kV adjustment per patient size (includes targeted exams where dose is matched to clinical indication); or iterative reconstruction. Coronal and sagittal reformatted images were created and reviewed. COMPARISON: No relevant prior studies available. FINDINGS: Lung bases: There is minimal bibasilar atelectasis. ABDOMEN: Liver: Diffuse low-attenuation of the liver parenchyma with sparing along the gallbladder fossa. Normal liver size. No intra-or extrahepatic biliary dilation. Gallbladder and bile ducts: Moderate pericholecystic stranding which extends inferiorly along the right mesentery. Encapsulated fluid collection seen between the gallbladder and liver measures 2.9 x 2.2 cm (series 4, image 50). No radiopaque calculi. Pancreas: Normal. No ductal dilation. Spleen: Normal. No splenomegaly. Adrenals: Normal. No mass. Kidneys and ureters: Normal. No obstructing stones. Stomach and bowel: Incompletely distended grossly normal stomach. Normal caliber small bowel. No colonic masses or segmental wall thickening. PELVIS: Appendix: Dilated thick walled distal appendiceal tip measuring 1 cm with subtle possible periappendiceal inflammatory changes. No periappendiceal encapsulated fluid collections. Bladder: Thin-walled bladder with no focal nodularity, perivesicular stranding, or calcifications. No stones. Reproductive: Normal sized prostate. Normal seminal vesicles. ABDOMEN and PELVIS: Intraperitoneal space: No ascites, pneumoperitoneum, or hemorrhage. Bones/joints: No fractures. No suspicious bone lesions. Soft tissues: Fat-containing right indirect inguinal hernia. No stranding. Vasculature: The aorta demonstrates mild atherosclerotic calcification. No abdominal aortic aneurysm. Lymph nodes: Normal. No enlarged lymph nodes. IMPRESSION: 1. Findings of acute cholecystitis with associated abscess suggesting perforation. Recommend further characterization with ultrasound. 2. Subtle changes of possible tip appendicitis. 3. Right inguinal hernia. No strangulation.
[2018-07-08] MEDS ORDERED: Piperacillin/Tazobac ADVAN(*) 3.375 GM in NS 0.9% 100 ML* 100 ML IVPB ONE ×2 (20:47→20:53)
[2018-07-08] MEDS ORDERED: Acetaminophen TAB* 325 MG PO PRN (20:53)
[2018-07-08] MEDS ORDERED: Zosyn per Pharmacy* NOTE FOLLOW UP SCH (21:00)
[2018-07-08 21:06] LABS: Urine Appearance Clear; Urine Blood Negative (Negative); Urine Color Yellow; Urine Ketones Negative (Negative); Urine Protein Negative (Negative); Urine Specific Gravity 1.011 (1.010-1.030); Urine Urobilinogen Negative (Negative)
[2018-07-08] MEDS: HYDROmorphone INJ1* 1 MG/ML SYRINGE IV SLOW PU PRN (21:47)
[2018-07-08] MEDS: NS 0.9% 1000 ML* 1,000 ML IV SCH (21:47)
[2018-07-09] MEDS: ZOSYN 3.375 GM Q8H per EXTENDED INFUSION IVPB SCH ×6 (01:52→17:04)
[2018-07-09] MEDS: NS 0.9% 1000 ML* 1,000 ML IV SCH ×4 (03:07→22:47)
[2018-07-09] MEDS: HYDROmorphone INJ1* 1 MG/ML SYRINGE IV SLOW PU PRN ×8 (04:37→21:54)
[2018-07-09 05:00] LABS: ABS Basophils 0.1 10^3/ul (0-0.2); ABS Eosinophils 0 10^3/ul (0-0.6); ABS Lymphocytes 1.5 10^3/ul (1.0-4.8); ABS Monocytes 1.2 10^3/ul (0-0.8); ABS Neutrophils 9.9 10^3/ul (1.5-7.7); ABS Nucleated RBC 0 10^3/ul; Eosinophil % 0.3 % (0-6); Hematocrit 38 % (42-52); Lymphocyte % 11.8 % (25-47); Mean Corpuscular HGB Conc 34 g/dl (31-36); Mean Corpuscular Hemoglobin 30 pg (27-31); Mean Corpuscular Volume 87 fL (80-94); Mean Platelet Volume 6.8 um3 (7.4-10.4); Nucleated Red Blood Cells % 0; Platelet Count 220 10^3/ul (150-450); Red Blood Count 4.41 10^6/ul (4.00-5.40); Red Cell Distribution Width 14 % (10.5-15); White Blood Count 12.7 10^3/ul (3.5-10.8)
[2018-07-09 07:20] LABS: EGFR Non-African American 85.3 (>60)
[2018-07-09] MEDS: Ondansetron INJ* 2 MG/ML VIAL IV PRN ×2 (07:27→13:26)
--- NOTE | 2018-07-09 08:51 | RAD ---
HISTORY: Cholecystitis by CT, ?? gallstones COMPARISONS: CT dated July 08, 2018 TECHNIQUE: Multiple transverse and longitudinal ultrasound images were obtained of the right upper quadrant of the abdomen using grayscale and color Doppler imaging. FINDINGS: LIVER: The liver is diffusely echogenic and coarse in echotexture, with decreased acoustic transmission. The liver is otherwise normal in shape, size, and contour. There is normal hepatopedal flow of the portal vein on Doppler imaging. BILIARY TREE: There is no intrahepatic or extrahepatic biliary dilatation. The common duct measures 0.3 cm. GALLBLADDER: There is collateral thickening. There is pericholecystic fluid. There is no appreciable cholelithiasis. The presence or absence of a sonographic Pate sign is not recorded. PANCREAS: The pancreas is obscured by overlying bowel gas. RIGHT KIDNEY: The right kidney is normal in shape, size, contour, and echogenicity. There is no hydronephrosis or nephrolithiasis. The right kidney measures 12.4 x 6.3 x 5 cm. AORTA AND IVC: The aorta and IVC are unremarkable. FLUID: There are no pleural effusions. There is no free fluid within the hepatorenal recess. OTHER FINDINGS: There is a small amount of free fluid adjacent to the gallbladder and liver. IMPRESSION: GALLBLADDER WALL THICKENING WITH PERICHOLECYSTIC FREE FLUID CONSISTENT WITH THE CT FINDINGS OF ACUTE CHOLECYSTITIS. NO APPRECIABLE CHOLELITHIASIS.
--- NOTE | 2018-07-09 12:22 | RAD ---
Indication: 4 days abdominal pain. Concern for acute cholecystitis. Comparison: July 09, 2018 ultrasound and July 08, 2018 CT. Technique: 6.200 mCi of Tc-99m Choletec was injected IV. Serial anterior images of the abdomen were obtained immediately following radiopharmaceutical administration to 60 minutes. Report: There is normal hepatic uptake and excretion of the radiopharmaceutical. Bowel activity visualized at approximately 15 minutes. The gallbladder is not visualized on the initial 60 minute serial anterior scintiphotos or the three-hour delayed anterior scintiphotos. IMPRESSION: #. Obstructed cystic duct consistent with acute cholecystitis given the clinical context. #. Patent common bile duct.
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
[2018-07-10] MEDS: HYDROmorphone INJ1* 1 MG/ML SYRINGE IV SLOW PU PRN ×12 (00:36→23:22)
[2018-07-10] MEDS: ZOSYN 3.375 GM Q8H per EXTENDED INFUSION IVPB SCH ×6 (00:38→17:35)
[2018-07-10] MEDS: Ondansetron INJ* 2 MG/ML VIAL IV PRN ×3 (00:45→16:03)
[2018-07-10] MEDS: NS 0.9% 1000 ML* 1,000 ML IV SCH ×4 (04:32→23:25)
[2018-07-10 06:28] LABS: ABS Basophils 0.1 10^3/ul (0-0.2); ABS Eosinophils 0.1 10^3/ul (0-0.6); ABS Lymphocytes 1.6 10^3/ul (1.0-4.8); ABS Monocytes 0.9 10^3/ul (0-0.8); ABS Neutrophils 8.3 10^3/ul (1.5-7.7); ABS Nucleated RBC 0 10^3/ul; Eosinophil % 1.2 % (0-6); Hematocrit 35 % (42-52); Hemoglobin 11.9 g/dl (14.0-18.0); Lymphocyte % 14.9 % (25-47); Mean Corpuscular HGB Conc 34 g/dl (31-36); Mean Corpuscular Hemoglobin 30 pg (27-31); Mean Corpuscular Volume 87 fL (80-94); Mean Platelet Volume 7.1 um3 (7.4-10.4); Nucleated Red Blood Cells % 0; Platelet Count 221 10^3/ul (150-450); Red Blood Count 3.97 10^6/ul (4.00-5.40); Red Cell Distribution Width 13 % (10.5-15)
[2018-07-10 07:26] LABS: EGFR Non-African American 99.3 (>60)
--- NOTE | 2018-07-10 11:41 | PN ---
Progress Note - Progress Note Date of Service: 07/10/18 SOAP: Subjective: Still with right upper abdominal pain but improved Has appetite Objective: Temp Pulse Resp BP Pulse Ox 98.5 F 68 14 154/74 96 07/10/18 07:34 07/10/18 07:34 07/10/18 10:22 07/10/18 07:34 07/10/18 07:34 Intake & Output 07/08/18 07/09/18 07/10/18 07/11/18 06:59 06:59 06:59 06:59 Intake Total 1110 4256 Output Total 550 1525 300 Balance 560 2731 -300 Weight 252 lb 252 lb Intake: IV Fluids 900 3405 ABX - ZOSYN 900 NS (0.9%) 1330 IVPB 210 851 ABX - ZOSYN 210 222 NS (0.9%) 629 Oral 0 0 Output: Urine 550 1525 300 Other: Estimated Void Large Medium # Voids 1 1 PEX: Comfortable Awake and alert Lungs are clear Abd is soft and non-distended. Bowel sounds are present. Mild tenderness in RUQ without mass or guarding. No peritoneal irritation. US noted--no gallstones, acalculous cholecytitis HIDA-cystic duct obstruction Laboratory Results - last 24 hr 07/10/18 07/10/18 05:06 05:06 WBC 11.0 H RBC 3.97 L Hgb 11.9 L Hct 35 L MCV 87 MCH 30 MCHC 34 RDW 13 Plt Count 221 MPV 7.1 L Neut % (Auto) 75.3 Lymph % (Auto) 14.9 L [place] % (Auto) 8.1 H Eos % (Auto) 1.2 Baso % (Auto) 0.5 Absolute Neuts (auto) 8.3 H Absolute Lymphs (auto) 1.6 Absolute Monos (auto) 0.9 H Absolute Eos (auto) 0.1 Absolute Basos (auto) 0.1 Absolute Nucleated RBC 0 Nucleated RBC % 0 Sodium 141 Potassium 3.7 Chloride 110 Carbon Dioxide 22 Anion Gap 9 BUN 13 Creatinine 0.85 Est GFR ( Amer) 120.2 Est GFR (Non-Af Amer) 99.3 BUN/Creatinine Ratio 15.3 Glucose 75 Calcium 8.2 L Assessment: Acute acalulous cholecystitis--delayed presentation, WBC improving, clinically improving on IV abx HTN Plan: Continue IV abx--as long as improves, plan on interval cholecystectomy. If worsens or fever/ WBC elevation, consider percutaneous drainage. Clear liquids HTN meds to start.
[2018-07-10] MEDS: Gabapentin CAP(*) 300 MG PO SCH ×2 (14:19→20:36)
[2018-07-10] MEDS ORDERED: CLONIDINE HCL 0.1 MG PO SCH (21:00)
[2018-07-10] MEDS: cloNIDine TAB* 0.1 MG PO SCH (23:22)
[2018-07-11] MEDS: ZOSYN 3.375 GM Q8H per EXTENDED INFUSION IVPB SCH ×6 (01:13→17:15)
[2018-07-11] MEDS: HYDROmorphone INJ1* 1 MG/ML SYRINGE IV SLOW PU PRN ×9 (02:21→23:40)
[2018-07-11] MEDS: NS 0.9% 1000 ML* 1,000 ML IV SCH (06:28)
[2018-07-11] MEDS ORDERED: NS 0.9% 1000 ML* 1,000 ML IV SCH (08:05)
[2018-07-11] MEDS: Gabapentin CAP(*) 300 MG PO SCH ×3 (08:18→21:35)
[2018-07-11] MEDS: cloNIDine TAB* 0.1 MG PO SCH (08:18)
[2018-07-11] MEDS: Ondansetron INJ* 2 MG/ML VIAL IV PRN ×2 (08:19→21:34)
--- NOTE | 2018-07-11 08:24 | PN ---
Progress Note - Progress Note Date of Service: 07/11/18 SOAP: Subjective: Feels a little better-less pain Tolerating clear liquids Objective: Temp Pulse Resp BP Pulse Ox 98.2 F 42 16 137/77 96 07/11/18 04:04 07/11/18 04:04 07/11/18 05:30 07/11/18 04:04 07/11/18 04:04 Intake & Output 07/09/18 07/10/18 07/11/18 07/12/18 06:59 06:59 06:59 06:59 Intake Total 1110 4256 5635 Output Total 550 1525 2550 Balance 560 2731 3085 Weight 252 lb 252 lb Intake: IV Fluids 900 3405 3864 ABX - ZOSYN 900 NS (0.9%) 1330 3864 IVPB 210 851 321 ABX - ZOSYN 210 222 321 NS (0.9%) 629 Oral 0 0 1450 Output: Urine 550 1525 2550 Other: Estimated Void Large Medium # Voids 1 1 PEX: Comfortable Lungs are clear Cor is RRR-slow and regular Abd is soft and non-distended. Bowel sounds are present. Mild tenderness in the RUQ, no mass or guarding, no peritoneal irritation. Ext without edema right No labs Assessment: Acute acalculous cholecystitis--delayed presentation. Improved and tolerating po, afebrile, exam improved with less pain HTN-also bradycardia Plan: IV abx Advance diet Hospitalist consult--HTN and bradycardia, discussed with Dr. Owens Recheck labs in AM If continued improvement, d/c on oral antibiotics in 24-48 hrs.
[2018-07-11] MEDS ORDERED: Diltiazem CD CAP* 120 MG PO SCH (09:00)
--- NOTE | 2018-07-11 14:33 | PN ---
Subjective Date of Service: 07/11/18 Interval History: Patient seen and examined. No acute overnight events. Patient states he has been intermittently nauseous. No fevers or chills. States he has pain but is moderately well-controlled. Discussed his BP meds at length, states he has been having issues with low BP prior to admission, aware that HR has been low last 24 hours but he denies any symptoms. Objective Active Medications: Acetaminophen (Tylenol Tab*) 650 mg PO Q6H PRN PRN Reason: FEVER Last Admin: 07/08/18 21:38 Dose: 650 mg Amlodipine Besylate (Norvasc Tab*) 10 mg PO DAILY [facility] Gabapentin (Neurontin Cap(*)) 600 mg PO TID [facility] Last Admin: 07/11/18 14:24 Dose: 600 mg Hydromorphone HCl (Dilaudid Inj1s*) 1 mg IV SLOW PU Q1H PRN PRN Reason: PAIN Last Admin: 07/11/18 14:24 Dose: 1 mg Piperacillin Sod/Tazobactam (Sod 3.375 gm/ Sodium Chloride) 100 mls @ 25 mls/ hr IVPB Q8H [facility] Last Admin: 07/11/18 10:16 Dose: 25 mls/hr Sodium Chloride (Ns 0.9% 1000 Ml*) 1,000 mls @ 50 mls/hr IV PER RATE [facility] Ondansetron HCl (Zofran Inj*) 4 mg IV Q6H PRN PRN Reason: NAUSEA Last Admin: 07/11/18 08:19 Dose: 4 mg Pharmacy Consult (Zosyn Per Pharmacy*) 1 note FOLLOW UP .ZOSYN PER PHARMACY [facility] Vital Signs - 8 hr 07/11/18 07/11/18 07/11/18 08:15 08:18 08:19 Temperature Pulse Rate Respiratory 16 18 18 Rate Blood Pressure (mmHg) O2 Sat by Pulse Oximetry 07/11/18 07/11/18 07/11/18 08:50 10:19 11:01 Temperature 99.2 F Pulse Rate 40 Respiratory 14 16 16 Rate Blood Pressure 156/76 (mmHg) O2 Sat by Pulse 95 Oximetry 07/11/18 14:24 Temperature Pulse Rate Respiratory 16 Rate Blood Pressure (mmHg) O2 Sat by Pulse Oximetry Oxygen Devices in Use Now: None Result Diagrams: 07/10/18 05:06 07/10/18 05:06 Additional Lab and Data: Lab Results 07/08/18 Range/Units 18:36 WBC 18.4 H (3.5-10.8) 10^3/ul RBC 4.93 (4.00-5.40) 10^6/ul Hgb 14.4 (14.0-18.0) g/dl Hct 43 (42-52) % MCV 86 (80-94) fL MCH 29 (27-31) pg MCHC 34 (31-36) g/dl RDW 13 (10.5-15) % Plt Count 269 (150-450) 10^3/ul MPV 7.0 L (7.4-10.4) um3 Neut % (Auto) 85.5 H (38-83) % Lymph % (Auto) 6.5 L (25-47) % [place] % (Auto) 7.6 H (0-7) % Eos % (Auto) 0 (0-6) % Baso % (Auto) 0.4 (0-2) % Absolute Neuts (auto) 15.7 H (1.5-7.7) 10^3/ul Absolute Lymphs (auto) 1.2 (1.0-4.8) 10^3/ul Absolute Monos (auto) 1.4 H (0-0.8) 10^3/ul Absolute Eos (auto) 0 (0-0.6) 10^3/ul Absolute Basos (auto) 0.1 (0-0.2) 10^3/ul Absolute Nucleated RBC 0 10^3/ul Nucleated RBC % 0.2 Microbiology and Other Data: Microbiology 07/08/18 22:55 Aerobic Blood Culture - Preliminary Blood Venous No Growth Day 2 Anaerobic Blood Culture - Preliminary No Growth Day 2 07/08/18 18:36 Aerobic Blood Culture - Preliminary Blood Venous No Growth Day 2 Anaerobic Blood Culture - Preliminary No Growth Day 2 Assess/Plan/Problems-Billing Assessment:
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
[2018-07-12] MEDS: ZOSYN 3.375 GM Q8H per EXTENDED INFUSION IVPB SCH ×4 (01:28→09:16)
[2018-07-12] MEDS: HYDROmorphone INJ1* 1 MG/ML SYRINGE IV SLOW PU PRN ×3 (01:31→05:54)
[2018-07-12 05:56] LABS: ABS Basophils 0.1 10^3/ul (0-0.2); ABS Eosinophils 0.1 10^3/ul (0-0.6); ABS Lymphocytes 1.4 10^3/ul (1.0-4.8); ABS Monocytes 0.6 10^3/ul (0-0.8); ABS Neutrophils 5.1 10^3/ul (1.5-7.7); ABS Nucleated RBC 0 10^3/ul; Eosinophil % 1.8 % (0-6); Hematocrit 35 % (42-52); Lymphocyte % 19.3 % (25-47); Mean Corpuscular HGB Conc 34 g/dl (31-36); Mean Corpuscular Hemoglobin 30 pg (27-31); Mean Corpuscular Volume 86 fL (80-94); Nucleated Red Blood Cells % 0.2; Platelet Count 241 10^3/ul (150-450); Red Blood Count 4.09 10^6/ul (4.00-5.40); Red Cell Distribution Width 13 % (10.5-15); White Blood Count 7.4 10^3/ul (3.5-10.8)
[2018-07-12 06:20] LABS: EGFR Non-African American 90.7 (>60)
[2018-07-12] MEDS ORDERED: Ketorolac INJ* 30 MG/ML 1 ML VIAL IV PUSH PRN (07:40)
[2018-07-12] MEDS ORDERED: oxyCODONE/Acetamin 5/325 MG* TAB PO PRN (07:40)
[2018-07-12] MEDS ORDERED: amLODIPine TAB* 5 MG PO SCH (09:00)
[2018-07-12] MEDS: Gabapentin CAP(*) 300 MG PO SCH (09:13)
--- NOTE | 2018-07-12 10:07 | PN ---
Progress Note - Progress Note Date of Service: 07/12/18 SOAP: Subjective: Continues to feel better-less pain Tolerating fulls Had BM and is passing flatus Objective: Temp Pulse Resp BP Pulse Ox 98.6 F 48 18 128/58 97 07/12/18 08:42 07/12/18 08:42 07/12/18 09:13 07/12/18 08:42 07/12/18 08:42 Intake & Output 07/10/18 07/11/18 07/12/18 07/13/18 06:59 06:59 06:59 06:59 Intake Total 4256 5635 3828 1183 Output Total 1525 2550 3275 600 Balance 2731 3085 553 583 Weight 252 lb Intake: IV Fluids 3405 3864 968 703 ABX - ZOSYN 131 NS (0.9%) 1330 3864 968 572 IVPB 851 321 210 ABX - ZOSYN 222 321 210 NS (0.9%) 629 Oral 0 1450 2650 480 Output: Urine 1525 2550 3275 600 Other: Estimated Void Medium Small Date of Last Bowel 07/11/18 Movement Estimated Stool Amount Small # Voids 1 PEX: Comfortable Awake and alert Lungs are clear Abd is soft and non-distended. Bowel sounds are present. Very mild tenderness in RUQ--no rebound or guarding. Ext on right without edema Laboratory Results - last 24 hr 07/12/18 07/12/18 05:42 05:42 WBC 7.4 RBC 4.09 Hgb 12.0 L Hct 35 L MCV 86 MCH 30 MCHC 34 RDW 13 Plt Count 241 MPV 7.0 L Neut % (Auto) 69.5 Lymph % (Auto) 19.3 L Beckham % (Auto) 8.6 H Eos % (Auto) 1.8 Baso % (Auto) 0.8 Absolute Neuts (auto) 5.1 Absolute Lymphs (auto) 1.4 Absolute Monos (auto) 0.6 Absolute Eos (auto) 0.1 Absolute Basos (auto) 0.1 Absolute Nucleated RBC 0 Nucleated RBC % 0.2 Sodium 142 Potassium 4.0 Chloride 110 Carbon Dioxide 26 Anion Gap 6 BUN 7 Creatinine 0.92 Est GFR ( Amer) 109.7 Est GFR (Non-Af Amer) 90.7 BUN/Creatinine Ratio 7.6 L Glucose 95 Calcium 8.5 L Total Bilirubin 0.40 AST 14 ALT 15 Alkaline Phosphatase 37 Total Protein 6.1 L Albumin 3.4 Globulin 2.7 Albumin/Globulin Ratio 1.3 Assessment: Acute acalculous cholecystitis--delayed presentation. Much improved with non- operative management-IV abx WBC normal and no fever, abdominal pain improving, tolerating po Bradycardia-appreciate hospitalist consult--medications adjusted Plan: [facility] Oral Augmentin 875 mg po daily for 10 days Discussed with Soraya Hallman-hospitalist--amlodipine 10 mg po daily, stop cardizem and clonidine Diet as tolerated to low fat diet NSAID's or tylenol for pain Office follow up next Tuesday 07/17 at 3PM
[2018-07-12 11:32] VITALS: BP 134/63
--- NOTE | 2018-07-13 04:16 | DS ---
DISCHARGE SUMMARY: DATE OF ADMISSION: 07/09/18 DATE OF DISCHARGE: 07/12/18 PRINCIPAL DIAGNOSIS: Acute acalculous cholecystitis. SECONDARY DIAGNOSES: 1. Hypertension. 2. Bradycardia, asymptomatic. SURGICAL PROCEDURE PERFORMED: None. CONDITION ON DISCHARGE: Good. DISPOSITION: [facility]. INSTRUCTION ON DISCHARGE: The patient was instructed and prescriptions given for Augmentin 875 mg p.o. b.i.d. for 10 days. One refill was given. Tylenol and/or nonsteroidal pain medicines, but no narcotic should be needed. His Cardizem as well as clonidine were discontinued due to asymptomatic significant bradycardia and he was started on amlodipine 10 mg p.o. daily and as recommended , he continues to take this as an outpatient. Followup appointment was made to be seen in the [facility] here in [place] on 07/17/18 at 3 p.m. Written instructions were given for the facility to call if he develops fever, jaundice, severe abdominal pain, nausea, vomiting, abdominal distension and/or have other questions or concerns. HISTORY OF PRESENT ILLNESS: Mr. Jonnathan Deras is a 43-year-old gentleman who presented to the emergency room on 07/08/18 with a 3 or 4 day history of epigastric and right upper quadrant abdominal pain associated with nausea and vomiting. On the day of presentation, pain worsened. He was noted to have a low- grade fever and an elevated white blood count cell count to 18,000. He has tenderness in the epigastrium and right upper quadrant. He underwent a CT scan of the abdomen and pelvis, which showed no gallstones, however, there was significant amount of inflammation surrounding the gallbladder consistent with acute acalculous cholecystitis. Also, of note was the concern about possibility of mildly thickened appendix, but no periappendiceal inflammation and this was felt to most likely be an incidental finding, as he had no pain in this area. He was started on intravenous Zosyn, surgical consultation was obtained. HOSPITAL COURSE: The patient was admitted to surgical service, started on IV Zosyn and kept n.p.o. On hospital day #1, he underwent a gallbladder ultrasound , which showed once again no evidence of cholelithiasis, but a markedly thickened gallbladder wall with the pericholecystic free fluid consistent with acute cholecystitis. HIDA scan also confirmed cystic duct obstruction with no filling of the gallbladder confirming cholecystitis. Due to the fact that he had significant delay in his presentation and he showed some evidence of generalized peritonitis or sepsis, he was treated with IV antibiotics with an attempt to avoid acute surgical intervention at this point. Over the course of the next several days his fever resolved, his white blood cell count returned to normal, his abdominal pain improved. His diet was advanced as tolerated and on the day of discharge, he was tolerating a full liquid diet, having normal bowel movements, and passing flatus and only mild tenderness in the right upper quadrant with no evidence of mass, rebound, or peritoneal irritation. Plan will be for an interval cholecystectomy, most likely in 4 to 6 weeks and this will be arranged when he is seen in the office at his first followup visit. [id number]/[facility] #: [id number] [place]
== END 2018-07-12 13:10 ==
LOC: ED 13:45 → EEVIPCON 20:50 → SSU 20:50 → OBSVTOIN 07-09 16:08 → EEVIPCON 07-09 16:08
PROVIDERS: ADMIT Surgery; ATTEND Surgery
DX: K81.0 Acute cholecystitis (principal); I10 Essential (primary) hypertension; R00.1 Bradycardia, unspecified; G89.29 Other chronic pain; M25.552 Pain in left hip; M25.551 Pain in right hip; G43.909 Migraine, unspecified, not intractable, without status migrainosus; F17.210 Nicotine dependence, cigarettes, uncomplicated; T46.5X5A Adverse effect of other antihypertensive drugs, initial encounter; T46.1X5A Adverse effect of calcium-channel blockers, initial encounter; Y92.9 Unspecified place or not applicable; Z23 Encounter for immunization; Z88.8 Allergy status to other drugs, medicaments and biological substances; Z91.040 Latex allergy status; Z89.432 Acquired absence of left foot; Z82.49 Family history of ischemic heart disease and other diseases of the circulatory system
CPT/HCPCS: 36415; 74176; 76705; 78226; 80048; 80053; 80076; 81003; 83605; 83690; 85025; 86140; 87040; 90686; 93005; 99285; 99406; A9270-GY; A9537; G0378; J1170; J1885; J2270; J2405; J2543

== ENCOUNTER 2018-07-29 06:27 | Observation (INO) | payer MEDICAID, OTHER ==
[~2018-07-29 06:27] MED LIST: Buffered Lidocaine 0.9% SYRIN* 5 ML/SYR SYRINGE INTRADERM ONE; Dexamethasone TAB* 4 MG PO ONE; DiMENhydriNATE IV* 50 MG/ML VIAL IV PUSH PRN; Famotidine IV* 10 MG/ML 2 ML (20 mg) IV ONE; Morphine VIAL* 4 MG/ML VIAL (1 ml vial) IV PRN; Naloxone* 0.4 MG/ML 1 ML VIAL IV PRN; Ondansetron INJ* 2 MG/ML VIAL ONE; oxyCODONE/Acetamin 5/325 MG* TAB PO PRN
[2018-07-29] MEDS ORDERED: Buffered Lidocaine 0.9% SYRIN* 5 ML/SYR SYRINGE ONE (06:54)
[2018-07-29] MEDS ORDERED: Famotidine IV* 10 MG/ML 2 ML (20 mg) ONE (07:03)
[2018-07-29] MEDS ORDERED: Ondansetron ODT TAB* 4 MG ONE (07:03)
[2018-07-29] MEDS ORDERED: Dexamethasone TAB* 4 MG ONE (07:04)
[2018-07-29] MEDS ORDERED: ceFAZolin 2 GM PREMIX in ORs 2 GM/50 ML BAG IVPB ONE (07:04)
[2018-07-29] MEDS ORDERED: Midazolam* 1 MG/ML 5 ML VIAL (5 MG) ONE (07:06)
[2018-07-29] MEDS ORDERED: fentaNYL* 50 MCG/ML 5 ML VIAL (250 MCG VIAL) ONE (07:06)
[2018-07-29] MEDS ORDERED: KETAMINE HCL* 50 MG/ML 10 ML VIAL ONE (07:06)
[2018-07-29] MEDS ORDERED: Atracurium* 10 MG/ML 10 ML VIAL ONE (07:06)
[2018-07-29] MEDS ORDERED: Bupivacaine 0.25% W/EPI* 10 ML SDV ONE ×2 (07:11→09:57)
[2018-07-29] MEDS ORDERED: Glycopyrrolate IV* 0.2 MG/ML 1 ML VIAL ONE (07:58)
[2018-07-29] MEDS ORDERED: Propofol* 10 MG/ML 20 ML BTL IV PUSH ONE (07:58)
[2018-07-29] MEDS ORDERED: Neostigmine Methylsulfate* 1 MG/ML 10 ML VIAL (1 mg/ml) ONE (07:58)
[2018-07-29] MEDS ORDERED: Lidocaine 2% PF * 5 ML VIAL ONE (07:58)
[2018-07-29] MEDS ORDERED: Ketorolac INJ* 30 MG/ML 1 ML VIAL ONE (07:58)
[2018-07-29] MEDS ORDERED: Morphine VIAL* 10 MG/ML 1 ML VIAL ONE (08:29)
[2018-07-29] MEDS ORDERED: Iohexol 180 (CONTRAST) 10 ML SDV IV ONE (08:49)
[2018-07-29] MEDS ORDERED: Labetalol IV* 5 MG/ML 20 ML VIAL ONE (10:05)
[2018-07-29] MEDS ORDERED: HYDROmorphone INJ1* 1 MG/ML SYRINGE IV PRN (10:16)
[2018-07-29] MEDS ORDERED: Ondansetron INJ* 2 MG/ML VIAL IV PRN (10:16)
[2018-07-29] MEDS ORDERED: Acetaminophen TAB* 325 MG PO PRN (10:16)
[2018-07-29] MEDS ORDERED: fentaNYL* 50 MCG/ML 2 ML VIAL (100 MCG VIAL) ONE (10:20)
[2018-07-29] MEDS: fentaNYL* 50 MCG/ML 2 ML VIAL (100 MCG VIAL) IV PRN ×2 (10:22→10:34)
[2018-07-29] MEDS ORDERED: oxyCODONE/Acetamin 5/325 MG* TAB ONE (10:31)
[2018-07-29] MEDS ORDERED: HYDROmorphone INJ1* 1 MG/ML SYRINGE ONE (11:38)
[2018-07-29] MEDS: NS 0.9% 1000 ML* 1,000 ML IV SCH ×2 (11:50→22:25)
[2018-07-29] MEDS ORDERED: Ketorolac INJ* 30 MG/ML 1 ML VIAL IV SCH (12:00)
[2018-07-29] MEDS: Piperacillin/Tazobactam VIAL*) 3.375 GM in NS 0.9% 100 ML* 100 ML IVPB SCH ×2 (13:15→22:26)
[2018-07-29] MEDS: Gabapentin CAP(*) 300 MG PO SCH ×2 (13:17→22:28)
[2018-07-29] MEDS: HYDROcodone/ACETAMIN 5-325 MG* 1 TAB PO PRN ×2 (14:43→18:31)
[2018-07-29] MEDS: Ketorolac INJ* 30 MG/ML 1 ML VIAL IV SCH ×2 (15:55→22:28)
[2018-07-30] MEDS: Ketorolac INJ* 30 MG/ML 1 ML VIAL IV SCH ×4 (04:02→21:35)
[2018-07-30] MEDS: Piperacillin/Tazobactam VIAL*) 3.375 GM in NS 0.9% 100 ML* 100 ML IVPB SCH ×4 (05:16→21:35)
[2018-07-30 06:19] LABS: ABS Basophils 0 10^3/ul (0-0.2); ABS Eosinophils 0 10^3/ul (0-0.6); ABS Monocytes 0.7 10^3/ul (0-0.8); ABS Neutrophils 7.6 10^3/ul (1.5-7.7); ABS Nucleated RBC 0 10^3/ul; Eosinophil % 0 % (0-6); Hematocrit 37 % (42-52); Hemoglobin 12.4 g/dl (14.0-18.0); Lymphocyte % 11.2 % (25-47); Mean Corpuscular HGB Conc 34 g/dl (31-36); Mean Corpuscular Hemoglobin 29 pg (27-31); Mean Corpuscular Volume 86 fL (80-94); Mean Platelet Volume 6.8 um3 (7.4-10.4); Nucleated Red Blood Cells % 0.1; Platelet Count 224 10^3/ul (150-450); Red Blood Count 4.24 10^6/ul (4.00-5.40); Red Cell Distribution Width 13 % (10.5-15); White Blood Count 9.3 10^3/ul (3.5-10.8)
--- NOTE | 2018-07-30 07:36 | OP ---
DATE OF OPERATION: 07/29/18 - ROOM #346 DATE OF : 79 SURGEON: Juan Manuel Gonzalez MD DIRECTOR OF LABOR RELATIONS: Brittany De La Cruz NP ANESTHESIOLOGIST: Dr. Osroio. ANESTHESIA: General. PRE-OP DIAGNOSIS: Acalculous cholecystitis. POST-OP DIAGNOSIS: Chronic cholecystitis. OPERATIVE PROCEDURE: Laparoscopic cholecystectomy with cholangiogram. INDICATIONS: Mr. Jonnathan Deras is a 43-year-old gentleman, who had been admitted to the hospital almost a month ago after he presented with 4 days of right upper quadrant abdominal discomfort. He was noted to have a thickened gall- bladder wall with significant inflammation in the right upper quadrant and due to the duration of the symptoms, he was successfully treated with IV antibiotics with resolution of the discomfort. His white count returned to normal and he has been afebrile; however, he is still having some intermittent right upper quadrant abdominal pain and is now being taken to the operating room for an interval cholecystectomy. ESTIMATED BLOOD LOSS: 75 cc. IV FLUIDS: 1 L of crystalloid. SPECIMENS: Gallbladder. COMPLICATIONS: None. DRAINS: #10 SHIKHA drain in the right upper quadrant. FINDINGS: There was a normal-appearing cholangiogram with identification of the cystic duct and no filling defects. The patient had severe chronic acalculous cholecystitis and significant amount of adhesions and thickening of the gallbladder wall. There were no gallstones noted. DESCRIPTION OF PROCEDURE: Written informed consent was obtained, the abdomen was marked with indelible ink and preoperative antibiotics were administered. The patient was taken to the operating room and placed in the supine position. Sequential compression devices were placed in the lower extremities. General anesthesia was administered. The abdomen was prepped and draped in the usual sterile fashion. A time-out verification was completed. Initially, a small transverse incision was made just above the umbilicus, the peritoneal cavity was entered under direct vision. A 12-mm blunt port was inserted and the abdomen was insufflated to 15 mmHg. An 11-mm epigastric port was placed and two 5-mm ports were placed in the right upper quadrant of the abdominal wall. There were dense adhesions from the omentum to the liver and these were taken down using a combination of sharp dissection as well as cautery. The right colon was identified and protected from injury throughout. An orogastric tube was inserted to decompress the stomach and duodenum. With care with some tedious dissection through some chronic inflammation, the omentum was peeled off the gallbladder. The gallbladder wall was thickened consistent with chronic inflammation. Eventually, we were able to grasp this and elevate up over the liver bed. With some blunt and sharp dissection, we peel down some of the fatty infiltrate to identify the infundibulum of the gallbladder. The cystic duct and cystic artery were identified and with care I took a significant portion of the inferior part of the gallbladder off the liver bed to assure myself of these structures. Due to the difficulty of the dissection and to assure myself of this anatomy, a cholangiogram was then performed through the cystic duct, which showed free flow of contrast into the duodenum and no filling defect. With this finding, the cystic duct and artery were triply clipped and divided. The gallbladder was then removed from the liver bed using cautery. It was quite adherent in places. The gallbladder was then placed in Endo Catch bag and brought out through the umbilical incision. I then irrigated the hepatic bed. There was some significant amount of raw surface from the adhesions along the liver and the omentum and hemostasis was assured. It was rather raw and I did place several pieces of Surgicel into the liver bed. We also placed a #10 SHIKHA drain in the right upper quadrant, which exited through the right lateral port site. Fluid up above the liver was then irrigated. Hemostasis was assured. All ports were removed under direct vision of the camera. There was no abdominal wall bleeding. The umbilical fascia was closed with an interrupted 0 Vicryl suture. The skin was approximated with subcuticular 4-0 Vicryl suture at the 3 incisions. Steri-Strips were applied. The patient tolerated the procedure well and was taken to the recovery room in stable condition. [id number]/[facility] #: [id number] [place]
[2018-07-30] MEDS: amLODIPine TAB* 5 MG PO SCH (08:11)
[2018-07-30] MEDS: HYDROcodone/ACETAMIN 5-325 MG* 1 TAB PO PRN ×3 (08:11→19:51)
[2018-07-30] MEDS: Gabapentin CAP(*) 300 MG PO SCH ×3 (08:12→21:34)
--- NOTE | 2018-07-30 08:24 | PN ---
Progress Note - Progress Note Date of Service: 07/30/18 SOAP: Subjective: Doing better-pain controlled with IV meds Tolerating some po Objective: Temp Pulse Resp BP Pulse Ox 97.6 F 58 20 142/85 100 07/30/18 07:25 07/30/18 07:25 07/30/18 08:12 07/30/18 07:25 07/30/18 07:25 Intake & Output 07/28/18 07/29/18 07/30/18 07/31/18 06:59 06:59 06:59 06:59 Intake Total 5067 Output Total 4395 Balance 672 Weight 252 lb Intake: IV Fluids 3087 LR 2100 NS (0.9%) 987 IVPB 220 ABX - ZOSYN 220 Oral 1760 Output: SHIKHA #1 75 Urine 4320 PEX: Comfortable Lungs are clear Abd is soft and non-distended. SHIKHA in place with dark sanguinous fluid in bag. No bile noted. Incisions are clean and dry Laboratory Results - last 24 hr 07/30/18 07/30/18 05:36 05:36 WBC 9.3 RBC 4.24 Hgb 12.4 L Hct 37 L MCV 86 MCH 29 MCHC 34 RDW 13 Plt Count 224 MPV 6.8 L Neut % (Auto) 81.5 Lymph % (Auto) 11.2 L Knott % (Auto) 7.0 Eos % (Auto) 0 Baso % (Auto) 0.3 Absolute Neuts (auto) 7.6 Absolute Lymphs (auto) 1.0 Absolute Monos (auto) 0.7 Absolute Eos (auto) 0 Absolute Basos (auto) 0 Absolute Nucleated RBC 0 Nucleated RBC % 0.1 Total Bilirubin 0.40 Direct Bilirubin 0.10 Indirect Bilirubin 0.3 AST 12 L ALT 19 Alkaline Phosphatase 44 Total Protein 6.3 L Albumin 3.5 Globulin 2.8 Albumin/Globulin Ratio 1.3 Assessment: POD#1 s/p lap choly for acute and chronic acalculous cholecystitis Plan: Advance diet 24 more hours of IV abx Plan d/c tomorrow--d/c SHIKHA on d/c if not bilious
--- NOTE | 2018-07-30 14:44 | RAD ---
INDICATION: Intraoperative cholangiogram during cholecystectomy. Technique: 35.2 seconds of?fluoroscopy?was provided?for the physician proceduralist. REPORT: Spot images document an intraoperative cholangiogram with injection through the cystic duct. No filling defects are identified within the cystic or common bile ducts to indicate presence of a ductal stone. Negative for biliary dilatation. IMPRESSION: Procedural control films. CPT II Codes: G9500
[2018-07-31] MEDS: HYDROcodone/ACETAMIN 5-325 MG* 1 TAB PO PRN ×2 (02:16→10:03)
[2018-07-31] MEDS: Ketorolac INJ* 30 MG/ML 1 ML VIAL IV SCH ×2 (04:14→10:02)
[2018-07-31] MEDS: Piperacillin/Tazobactam VIAL*) 3.375 GM in NS 0.9% 100 ML* 100 ML IVPB SCH (06:13)
--- NOTE | 2018-07-31 08:34 | PN ---
Progress Note - Progress Note Date of Service: 07/31/18 SOAP: Subjective: Doing well Tolerating po Pain well controlled Objective: Temp Pulse Resp BP Pulse Ox 97.9 F 59 17 125/82 97 07/30/18 23:30 07/30/18 23:30 07/31/18 06:16 07/30/18 23:30 07/30/18 23:30 Intake & Output 07/29/18 07/30/18 07/31/18 08/01/18 06:59 06:59 06:59 06:59 Intake Total 5067 8413 Output Total 4395 5130 Balance 672 3283 Weight 252 lb Intake: IV Fluids 3087 2295 LR 2100 NS (0.9%) 987 2295 IVPB 220 398 ABX - ZOSYN 220 398 Oral 1760 5720 Output: SHIKHA #1 75 30 Urine 4320 5100 PEX: Comfortable Lungs are clear Abd is soft and non-distended. Incisions are clean and dry. Bowel sounds are present. SHIKHA in place-small amount of serosanguinous fluid in bulb, non-bilious Assessment: POD# 2 s/p lap choly Plan: Remove SHIKHA drain D/C home today No further antibiotics Follow up in office Instructions given
--- NOTE | 2018-07-31 09:25 | PN ---
Progress Note - Progress Note Date of Service: 07/31/18 Note: SHIKHA DRAIN REMOVED RIGHT MID ABDOMEN,STERILE 4X4S APPLIED,PT AGUILA SOFIE HORNER NP 07/31/18 0913
[2018-07-31] MEDS: Gabapentin CAP(*) 300 MG PO SCH (10:02)
[2018-07-31] MEDS: amLODIPine TAB* 5 MG PO SCH (10:02)
[2018-07-31 11:52] VITALS: BP 150/71
== END 2018-07-31 12:30 ==
LOC: OR 06:27 → EEVIPCON 11:40 → SSU 11:40
PROVIDERS: ADMIT Surgery; ATTEND Surgery
DX: K81.1 Chronic cholecystitis (principal); R10.13 Epigastric pain; I10 Essential (primary) hypertension; Z87.828 Personal history of other (healed) physical injury and trauma
CPT/HCPCS: 36415; 76000; 80076; 85025; 88304; 96374; 96375; 96376; A9270-GY; G0378; J0690; J1170; J1885; J2250; J2270; J2543; J2704; J2710; J3010; J8540